=== PATIENT | female | born 1985 | race Caucasian/White ===

== ENCOUNTER 2017-06-28 16:58 | Emergency (ER) | END 2017-06-28 22:24 | disposition home or self-care (01) ==

== ENCOUNTER 2018-06-06 11:09 | Emergency (ER) | payer OTHER ==
[~2018-06-06] VITALS: Ht 152.4 cm; Wt 110.8 kg
[~2018-06-06 11:09] MED LIST: ALPR0.5T PO; AMLO-218 PO; CLON0.5T14 PO; HYDR-3980 PO; LEVE-5 PO
[2018-06-06 12:48] VITALS: Ht 152.4 cm; Wt 110.8 kg
[2018-06-06] MEDS ORDERED: KETOROLAC 15 MG INJ IV STA (16:09)
[2018-06-06] MEDS ORDERED: ONDANSETRON 4 MG INJ IV STA (16:09)
[2018-06-06] MEDS ORDERED: SOD CHLORIDE 0.9% 1,000 ML IV STA (16:09)
[2018-06-06] MEDS ORDERED: LORAZEPAM 0.5 MG TAB PO ONE (16:30)
[2018-06-06] MEDS ORDERED: CEFTRIAXONE 1 GM/50 ML (PMX) 50 ML IVPB ONE (18:00)
[2018-06-06 18:25] VITALS: BP 133/83; PULSE 69; RESP 14
--- NOTE | 2018-06-06 20:30 | ERD ---
ER Documentation Chief Complaint Chief Complaint R side numb since AM: LWKT 2129. + R droop. no slurring. hx htn HPI 33-year-old woman complains of headache, dysuria, right-sided paresthesias. She states she has a history of "stroke" but denies residual deficits and her recent MRIs of her brain have been unremarkable. She denies slurred speech and denies weakness in her arms or legs denies chest pain or shortness of breath, no back pain, no fevers or chills. She states she has had similar paresthesias in the past and states she feels a bit anxious today ROS All systems reviewed and are negative except as per history of present illness. Medications Home Meds Discontinued Reported Medications Clonazepam* (Clonazepam*) 0.5 Mg Tablet, 0.5 MG PO QHS, TAB 06/28/17 Levetiracetam* (Keppra*) 500 Mg Tablet, 500 MG PO BID, TAB 06/28/17 Alprazolam* (Xanax*) 0.5 Mg Tab, 0.5 MG PO NEEDED PRN for ANXIETY, TAB 06/28/17 Discontinued Scripts Hydrocodone/Acetaminophen ([place] 10-325 Tablet) 1 Each Tablet, 1 TAB PO Q6H PRN for PAIN, #20 TAB Prov:ROSAOSKATHYSTVALENTINOS A. DO 06/28/17 Amlodipine Besylate* (Norvasc*) 10 Mg Tablet, 10 MG PO DAILY, #30 TAB Prov:LEKKOS,APOSTOLOS A. DO 06/28/17 Allergies Allergies: Coded Allergies: No Known Allergy (Unverified , 06/06/18) PMhx/Soc Anxiety, obesity History of Surgery: Yes () Anesthesia Reaction: No Hx Neurological Disorder: Yes (seizures, CVA 2014) Hx Respiratory Disorders: No Hx Cardiac Disorders: Yes (HTN) Hx Psychiatric Problems: No Hx Miscellaneous Medical Probl: No Hx Alcohol Use: No Hx Substance Use: No Hx Tobacco Use: No Smoking Status: Never smoker FmHx Family History: No diabetes Physical Exam Vitals Vital Signs Date Temp Pulse Resp B/P (MAP) Pulse Ox O2 O2 Flow FiO2 Time Delivery Rate 06/06/18 97.7 69 14 133/83 99 Room Air 18:25 (100) 06/06/18 64 16 113/89 100 Room Air 17:56 (97) 06/06/18 98.1 77 16 148/96 100 Room Air 16:03 (113) 06/06/18 98.7 80 22 164/114 96 12:48 (131) Physical Exam Const: No acute distress, anxious Head: Atraumatic Eyes: Normal Conjunctiva ENT: Normal External Ears, Nose and Mouth. Neck: Full range of motion. No meningismus. Resp: Clear to auscultation bilaterally Cardio: Regular rate and rhythm, no murmurs Abd: Soft, non tender, non distended. Normal bowel sounds Skin: No petechiae or rashes Back: No midline or flank tenderness Ext: No cyanosis, or edema Neur: Awake and alert x3, no focal deficits or facial asymmetry Psych: Anxious Result Diagram: 06/06/18 1622 06/06/18 1622 Results 24 hrs Laboratory Tests Test 06/06/18 16:22 White Blood Count 11.4 10^3/ul Red Blood Count 5.01 10^6/ul Hemoglobin 15.3 g/dl Hematocrit 43.0 % Mean Corpuscular Volume 85.8 fl Mean Corpuscular Hemoglobin 30.5 pg Mean Corpuscular Hemoglobin Concent 35.6 g/dl Red Cell Distribution Width 11.9 % Platelet Count 323 10^3/UL Mean Platelet Volume 9.4 fl Immature Granulocytes % 0.700 % Neutrophils % 53.6 % Lymphocytes % 34.0 % Monocytes % 8.8 % Eosinophils % 2.3 % Basophils % 0.6 % Nucleated Red Blood Cells % 0.0 /100WBC Immature Granulocytes # 0.080 10^3/ul Neutrophils # 6.1 10^3/ul Lymphocytes # 3.9 10^3/ul Monocytes # 1.0 10^3/ul Eosinophils # 0.3 10^3/ul Basophils # 0.1 10^3/ul Nucleated Red Blood Cells # 0.0 10^3/ul Urine Color YELLOW Urine Clarity CLOUDY Urine pH 5.0 Urine Specific [place] 1.024 Urine Ketones NEGATIVE mg/dL Urine Nitrite POSITIVE mg/dL Urine Bilirubin NEGATIVE mg/dL Urine Urobilinogen NEGATIVE mg/dL Urine Leukocyte Esterase TRACE Nixon/ul Urine Microscopic RBC 3 /HPF Urine Microscopic WBC 6 /HPF Urine Squamous Epithelial Cells MODERATE /HPF Urine Amorphous Crystals FEW /HPF Urine Bacteria MANY /HPF Urine Mucus MANY /HPF Urine Hemoglobin 3+ mg/dL Urine Glucose 2+ mg/dL Urine Total Protein NEGATIVE mg/dl Sodium Level 140 mmol/L Potassium Level 3.7 mmol/L Chloride Level 103 mmol/L Carbon Dioxide Level 25 mmol/L Anion Gap 12 Blood Urea Nitrogen 13 mg/dl Creatinine 0.49 mg/dl Est Glomerular Filtrat Rate mL/min > 60 mL/min Glucose Level 191 mg/dl Calcium Level 9.6 mg/dl Total Bilirubin 0.7 mg/dl Direct Bilirubin 0.00 mg/dl Indirect Bilirubin 0.7 mg/dl Aspartate Amino Transf (AST/SGOT) 44 IU/L Alanine Aminotransferase (ALT/SGPT) 74 IU/L Alkaline Phosphatase 154 IU/L Total Protein 7.8 g/dl Albumin 4.2 g/dl Globulin 3.60 g/dl Albumin/Globulin Ratio 1.16 Lipase 40 U/L Current Medications Medications Dose Sig/Fito Start Time Status Last (Trade) Ordered Route PRN Stop Time Admin Dose Reason Admin Lorazepam 0.5 mg ONCE ONCE 06/06/18 DC 06/06/18 (Ativan) PO 16:30 16:27 06/06/18 16:31 Sodium 1,000 ml @ Q1H STAT 06/06/18 DC 06/06/18 Chloride 1,000 mls/hr IV 16:09 16:27 06/06/18 17:08 Ondansetron 4 mg ONCE STAT 06/06/18 DC 06/06/18 HCl (Zofran IV 16:09 16:27 Inj) 06/06/18 16:21 Ketorolac 15 mg ONCE STAT 06/06/18 DC 06/06/18 Tromethamine IV 16:09 16:27 (Toradol) 06/06/18 16:21 Ceftriaxone 50 ml @ ONCE ONCE 06/06/18 DC 06/06/18 Sodium 100 mls/hr IVPB 18:00 17:54 06/06/18 18:29 Procedures/MDM IV line was established patient was placed on rn cardiac cath rhythm strip revealed a sinus rhythm at about 80 bpm with upright P and T waves. Patient was afebrile I administered 1 L normal saline IV, lorazepam 0.5 mg p.o. for anxiety, Toradol 15 mg IV, Zofran 4 mg IV CBC and electrolytes were normal, liver function tests normal, troponin negative, urinalysis positive for infection. I administered ceftriaxone 1 g IV x1 Differential diagnoses considered, included but not limited to acute coronary syndrome, pulmonary embolism, aortic dissection, abdominal aortic aneurysm, sep sis, stroke, meningitis, encephalitis, pneumonia, appendicitis, cholecystitis, bowel obstruction, pyelonephritis, nephrolithiasis, cystitis, as well as metabolic, hematologic, and electrolyte abnormalities. As well as abscess, cellulitis, fractures, and dislocations. Patient feels much better at this time, and vital signs are normal, symptoms have improved. I did give strict instructions to return to the ED if symptoms continue or worsen, patient will otherwise follow-up with primary care physi phyllis. Patient understood instructions and agreed to plan. Disclaimer: Inadvertent spelling and grammatical errors are likely due to EHR/dictation software use and do not reflect on the overall quality of patient care. Also, please note that the electronic time recorded on this note does not necessarily reflect the actual time of the patient encounter. Departure Diagnosis: Primary Impression: Numbness Additional Impressions: Acute UTI Acute anxiety Condition: Good Patient Instructions: Bladder Infection, Female (Adult), Paraesthesias Referrals: [facility] (PCP) SAL BULLOCK MD Jun 06, 2018 20:30
== END 2018-06-06 18:48 | disposition home or self-care (01) ==
LOC: E/R 11:09
DX: R20.0 Anesthesia of skin (principal); I10 Essential (primary) hypertension; N39.0 Urinary tract infection, site not specified; F41.9 Anxiety disorder, unspecified; Z86.73 Personal history of transient ischemic attack (TIA), and cerebral infarction without residual deficits
CPT/HCPCS: 36415; 80053; 81001; 83690; 85025; 96374; 96375; J0696; J1885; J2405; J7030; Z7502; Z7610